=== PATIENT | female | born 1995 | race Caucasian/White ===

== ENCOUNTER 2023-06-03 14:39 | Outpatient (CLI) | payer OTHER | END 2023-06-03 14:40 | disposition home or self-care (01) | LOC: CSHULT 14:39 | PROVIDERS: ATTEND Nurse Practitioner Women's Health | DX: O21.9 Vomiting of pregnancy, unspecified (principal); Z3A.20 20 weeks gestation of pregnancy | CPT/HCPCS: 76805 ==